=== PATIENT | female | born 1975 | race Native Hawaiian/Other Pacific Islander ===

== ENCOUNTER 2019-08-29 08:26 | Outpatient (CLI) | payer OTHER ==
[~2019-08-29 08:26] MED LIST: IMITREX100 MG PO; LORTAB1 TAB PO; ORTHOTRI28 PO
== END 2019-08-29 21:27 | disposition home or self-care (01) ==
LOC: MAMMO 08:26
DX: N64.4 Mastodynia (principal); Z98.82 Breast implant status; R89.9 Unspecified abnormal finding in specimens from other organs, systems and tissues

== ENCOUNTER 2021-01-04 12:11 | Outpatient (CLI) | payer OTHER | END 2021-01-04 19:41 | disposition home or self-care (01) | LOC: LAB 12:11 | PROVIDERS: ATTEND Family Medicine | DX: Z20.828 Contact with and (suspected) exposure to other viral communicable diseases (principal) | CPT/HCPCS: 87635; G2023; U0003 ==

== ENCOUNTER 2023-01-19 09:31 | Outpatient (CLI) | payer OTHER | END 2023-01-19 19:29 | disposition home or self-care (01) | LOC: MRI 09:31 | PROVIDERS: ATTEND Nurse Practitioner | DX: M54.14 Radiculopathy, thoracic region (principal) ==

== ENCOUNTER 2023-03-07 14:48 | Outpatient (CLI) | payer OTHER | END 2023-03-07 18:59 | disposition home or self-care (01) | LOC: RAD 14:48 | PROVIDERS: ATTEND Nurse Practitioner Family | DX: R05.9 Cough, unspecified (principal) ==

== ENCOUNTER 2023-03-19 14:10 | Outpatient (CLI) | payer OTHER | END 2023-03-19 19:03 | disposition home or self-care (01) | LOC: RAD 14:10 | PROVIDERS: ATTEND Nurse Practitioner Family | DX: R07.81 Pleurodynia (principal) ==